=== PATIENT | female | born 1990 | race Caucasian/White ===

== ENCOUNTER 2017-02-02 22:13 | Inpatient (IN) | payer OTHER ==
[~2017-02-02] VITALS: Ht 160 cm; Wt 87.9 kg
[2017-02-02 22:23] VITALS: Ht 160 cm; Wt 87.9 kg
[2017-02-02 22:24] VITALS: BP 120/65; PULSE 121; RESP 18
[2017-02-02] MEDS ORDERED: [UNRECOGNIZED DRUG - CODE] VG (22:29)
[2017-02-02] MEDS ORDERED: CEPH500C PO (22:29)
[2017-02-02] MEDS ORDERED: FERR325C PO (22:29)
[2017-02-02] MEDS ORDERED: PRENAT PO (22:29)
[2017-02-02] MEDS ORDERED: OXYTOCIN 30 UNITS/LR 500 ML IV PRN (23:30)
[2017-02-02] MEDS ORDERED: OXYTOCIN 30 UNITS/LR 500 ML IV SCH ×2 (23:30)
[2017-02-02] MEDS ORDERED: BUTORPHANOL 2 MG INJ IV PRN (23:30)
[2017-02-02] MEDS ORDERED: MISOPROSTOL 200 MCG TAB PR PRN (23:30)
[2017-02-02] MEDS ORDERED: CARBOPROST 250 MCG INJ IM PRN (23:30)
[2017-02-02] MEDS ORDERED: LIDOCAINE 1% (MPF) 30 ML INJ INJ PRN (23:30)
[2017-02-02] MEDS ORDERED: AMPICILLIN 2 GM/NS (PMX) 100 ML IV ONE (23:30)
[2017-02-02] MEDS ORDERED: METHYLERGONOVINE 0.2 MG INJ IM PRN (23:30)
[2017-02-02] MEDS: LACTATED RINGER'S 1,000 ML IV SCH (23:35)
[2017-02-02 23:49] LABS: ADD SCAN DIFF NO
[2017-02-02 23:52] LABS: BASOPHIL # 0.1 10^3/ul (0.0-0.1); BASOPHILS % 0.5 % (0.0-2.0); EOSINOPHILS # 0.1 10^3/ul (0.0-0.5); EOSINOPHILS % 1.1 % (0.0-7.0); HEMATOCRIT 35.4 % (37.0-47.0); LYMPHOCYTES # 2.2 10^3/ul (0.8-2.9); LYMPHOCYTES % 20.7 % (15.0-51.0); MEAN CORPUSCULAR HEMOGLOBIN 31.4 pg (29.0-33.0); MEAN CORPUSCULAR HGB CONC 33.9 g/dl (32.0-37.0); MEAN CORPUSCULAR VOLUME 92.7 fl (82.0-101.0); MEAN PLATELET VOLUME 10.7 fl (7.4-10.4); MONOCYTE # 0.9 10^3/ul (0.3-0.9); MONOCYTES % 8.8 % (0.0-11.0); NEUTROPHIL # 7.2 10^3/ul (1.6-7.5); NEUTROPHILS % 67.9 % (39.0-77.0); PLATELET COUNT 246 10^3/UL (140-415); RED BLOOD COUNT 3.82 10^6/ul (4.20-5.40); RED CELL DISTRIBUTION WIDTH 14.9 % (11.5-14.5); WHITE BLOOD COUNT 10.6 10^3/ul (4.8-10.8)
[2017-02-03 00:06] LABS: INR 0.9; PROTIME 12.1 Sec (12.2-14.2); PT RATIO 0.9
[2017-02-03 00:07] LABS: PARTIAL THROMBOPLASTIN TIME 28.1 Sec (25.0-35.0)
--- NOTE | 2017-02-03 01:11 | RADRPT ---
PROCEDURE: US OB. CLINICAL INDICATION: Estimated weight, labor, no records. Clinical estimate gesta tional age is 38 weeks 5 days with estimated date of delivery 02/11/2017 TECHNIQUE: Multiple sonographic images of the pelvis were obtained. The images were reviewed on a PACS workstation. COMPARISON: No prior studies are available for comparison. FINDINGS: There is a single live intrauterine gestation. Cardiac activity is present with 134 beats per minut e. There is a cephalic position. Measurements were made in order to determine age. The results are as follows: BPD =9.21 cm, 37 weeks 3 days HC =33 cm 37 weeks 4 days AC =35.34 cm, 39 weeks 2 days FL =7.51 cm, 38 weeks 3 days. Estimated gestational age of approximately 38 weeks 1 day. The estimated date of delivery is 02/15/2017. The EFW = 3549 g, 7 pounds 13 ounces, 65.4% . The placenta is fundal and grade I/II. There is no evidence for an abruption. IMPRESSION: Single live intrauterine gestation of approximately 38 weeks 1 day based on ultrasound measurements. The estimated date of delivery is 02/15/2017 . RPTAT: HJES .David Hair MD, Date Time Electronically viewed and signed by .David Hair MD, on 02/03/2017 01:10 .S/
[2017-02-03] MEDS ORDERED: LACTATED RINGER'S 1,000 ML IV PRN (03:00)
[2017-02-03] MEDS: AMPICILLIN 1 GM/NS (PMX) 50 ML IV SCH ×3 (03:29→11:48)
[2017-02-03] MEDS: LACTATED RINGER'S 1,000 ML IV SCH (07:51)
[2017-02-03] MEDS ORDERED: OXYTOCIN 30 UNITS/LR 500 ML IV SCH (10:00)
[2017-02-03] MEDS ORDERED: FENTAnyl 2MCG/ML-ROPIV 0.2% 100 ML ONE (10:57)
[2017-02-03] MEDS ORDERED: DIPHENHYDRAMINE 50 MG INJ IV PRN (11:00)
[2017-02-03] MEDS ORDERED: FENTAnyl 2MCG/ML-ROPIV 0.2% 100 ML BAG EPI SCH (11:00)
[2017-02-03] MEDS ORDERED: NALOXONE (0.4 MG/ML) INJ IV PRN (11:00)
[2017-02-03] MEDS ORDERED: ONDANSETRON 4 MG INJ IV PRN ×2 (11:00→14:30)
--- NOTE | 2017-02-03 12:19 | HP ---
Date/Time of Note Date/Time of Note DATE: 02/03/17 TIME: 12:03 OB - History Hx of Present Free Text/Dictation Patient came in labor admitted for delivery. Estimated Due Date: Feb 03, 2017 : 3 Para: 2 Care: Good Care Ultrasounds: Normal mid trimester US Obstetrical Complications: None Medical Complications: None Past Family/Social History * Past Medical, Surgical, Family and Obstetric Histories reviewed from chart. non contributory Blood Type: A+ Rubella: immune RPR/VDRL: Negative GBS Status: Negative HBsAG: Negative OB Admission Exam Vital Signs Vital Signs Vital Signs Date Time Temp Pulse Resp B/P Pulse Ox O2 Delivery O2 Flow Rate FiO2 02/02/17 22:24 98.5 121 18 120/65 Room Air Physical Exam HEENT: WNL Heart: Rhythm Normal Lungs: Clear, Equal Abdomen: WNL Extremities: Normal Reflexes: Normal Cervical Dilatation: 4cm Effacement: 75% Station: -2 Membranes: Intact Heart Rate: 130's Accelerations: Accelerations Present Decelerations: No Decelerations Varibility: Moderate Contractions on Admission: 6-10 Minutes Apart Intensity: Moderate Last 72 hours Lab Results CBC & BMP 02/02/17 23:15 OB Assessment/Plan Reason for admission: active labor, observation Plan: Induction Other plan: delivery VALDEZ CHANCE MD Feb 03, 2017 12:14
--- NOTE | 2017-02-03 14:25 | LDN ---
Date/Time of Note Date/Time of Note DATE: 02/03/17 TIME: 14:22 Delivery Summary VACUUM ASSISTED VAGINAL DELIVERY DUE TO POSTERIOR PRESENTATION AND HEART TONE DECELERATIONS Weeks of Gestation 38.6 WEEKS GESTATION IN LABOR AUGMENTATION GIVEN Assisted Vaginal Delivery: Vacuum Placenta Delivered: Spontaneously Meconium: none Episiotomy: No Anesthesia type: Epidural Estimated blood loss: 200 Sponge & Needle done & correct: Yes All needle counts correct: Yes Any foreign bodies felt in the: Yes Problems: Delivery Information Sex Sex: female Apgars 1 Minute: 9 5 Minute: 9 Suctioning Nose & mouth suctioned at eric: Yes Umbilical Cord Umbilical cord with: 3 Vessels Cord presentations: no nuchal cord Cord Blood was obtained: Yes Mother & Baby Disposition Disposition Mom & Baby to Maternity; Good: Yes VALDEZ CHANCE MD Feb 03, 2017 14:25
[2017-02-03] MEDS ORDERED: CARBOPROST 250 MCG INJ IM PRN (14:30)
[2017-02-03] MEDS ORDERED: ACETAMINOPHEN 325 MG TAB PO PRN ×2 (14:30)
[2017-02-03] MEDS ORDERED: METHYLERGONOVINE 0.2 MG INJ IM PRN (14:30)
[2017-02-03] MEDS ORDERED: MISOPROSTOL 200 MCG TAB PR PRN (14:30)
[2017-02-03] MEDS ORDERED: DIBUCAINE 1% 30 GM OINT PR PRN (14:30)
[2017-02-03] MEDS ORDERED: LANOLIN 7 GM TUBE TOP PRN (14:30)
[2017-02-03] MEDS ORDERED: BENZOCAINE 20% 56 ML SPRAY TOP PRN (14:30)
[2017-02-03] MEDS ORDERED: OXYTOCIN 30 UNITS/LR 500 ML IV PRN (14:30)
[2017-02-03] MEDS ORDERED: ACETAMINOPHEN/CODEINE #3 TAB PO PRN ×2 (14:30)
[2017-02-03] MEDS ORDERED: DIPHENHYDRAMINE 25 MG CAP PO PRN (14:30)
[2017-02-03] MEDS: OXYTOCIN 30 UNITS/LR 500 ML IV SCH ×2 (15:53→18:41)
[2017-02-03 16:57] VITALS: BP 101/52; PULSE 82; RESP 20
[2017-02-03] MEDS: IBUPROFEN 800 MG TAB PO SCH (17:44)
[2017-02-03 20:00] VITALS: BP 107/59; PULSE 68; RESP 20
[2017-02-03] MEDS: SENNA/DOCUSATE NA (8.6MG/50MG) TAB PO SCH (20:19)
[2017-02-04] VITALS: BP 107/59; PULSE 68; RESP 18
[2017-02-04] MEDS: IBUPROFEN 800 MG TAB PO SCH ×4 (01:48→17:54)
[2017-02-04 04:00] VITALS: BP 93/54; PULSE 67; RESP 18
[2017-02-04] MEDS: SENNA/DOCUSATE NA (8.6MG/50MG) TAB PO SCH ×2 (08:12→20:53)
[2017-02-04 08:30] VITALS: BP 98/56; PULSE 76; RESP 18
[2017-02-04 09:09] LABS: BASOPHILS % 0.3 % (0.0-2.0); EOSINOPHILS # 0.2 10^3/ul (0.0-0.5); HEMATOCRIT 34.7 % (37.0-47.0); HEMOGLOBIN 11.6 g/dl (12.0-16.0); LYMPHOCYTES # 2.1 10^3/ul (0.8-2.9); LYMPHOCYTES % 23.8 % (15.0-51.0); MEAN CORPUSCULAR HEMOGLOBIN 31.4 pg (29.0-33.0); MEAN CORPUSCULAR HGB CONC 33.4 g/dl (32.0-37.0); MEAN PLATELET VOLUME 10.8 fl (7.4-10.4); MONOCYTE # 0.5 10^3/ul (0.3-0.9); MONOCYTES % 5.5 % (0.0-11.0); NEUTROPHIL # 5.9 10^3/ul (1.6-7.5); NEUTROPHILS % 67.8 % (39.0-77.0); PLATELET COUNT 207 10^3/UL (140-415); RED BLOOD COUNT 3.69 10^6/ul (4.20-5.40); RED CELL DISTRIBUTION WIDTH 14.7 % (11.5-14.5); WHITE BLOOD COUNT 8.7 10^3/ul (4.8-10.8)
--- NOTE | 2017-02-04 11:47 | PN ---
Date/Time of Note Date/Time of Note DATE: 02/04/17 TIME: 11:45 OB Subjective Subjective Subjective doing well uterus contracted lochia normal not bleeding much breast feeding OB Objective HEENT: WNL Heart: Rhythm Normal Lungs: Clear, Equal Abdomen: WNL Extremities: Normal Reflexes: Normal OB Assessment/Plan Other Assessment: vaginal delivery day 1 VALDEZ CHANCE MD Feb 04, 2017 11:46
[2017-02-04 12:16] VITALS: BP 101/55; PULSE 77; RESP 18
[2017-02-04 16:00] VITALS: BP 99/55; PULSE 67; RESP 18
[2017-02-04 20:00] VITALS: BP 131/71; PULSE 85; RESP 18
[2017-02-05] MEDS: IBUPROFEN 800 MG TAB PO SCH ×2 (01:15→09:18)
[2017-02-05 04:00] VITALS: BP 100/58; PULSE 71; RESP 18
[2017-02-05 08:00] VITALS: BP 111/74; PULSE 70; RESP 16
[2017-02-05] MEDS ORDERED: VARICELLA VACCINE LIVE/PF 1,350 UNIT/0.5 ML ML SC* ONE (09:00)
[2017-02-05] MEDS ORDERED: DIPHTH/TET/ACEL PERTUSS (ADULT) 0.5 ML VIAL IM* ONE (09:00)
[2017-02-05] MEDS: SENNA/DOCUSATE NA (8.6MG/50MG) TAB PO SCH (09:18)
--- NOTE | 2017-02-05 13:59 | DS ---
Date/Time of Note Date/Time of Note DATE: 02/05/17 TIME: 13:59 Obstetrical Discharge Record Final Diagnosis Final Diagnosis: Term delivered Vaginal Delivery Obstetrical Delivery: Vacuum Extraction Complications Augmentation: Yes Condition on Discharge Physical Assessment Voiding: Yes Bowel Movement: Yes Breast: Soft, non-tender, Filling Fundus: Firm Calf Tenderness: No Patient Condition: Good VALDEZ CHANCE MD Feb 05, 2017 13:59
== END 2017-02-05 13:20 | disposition home or self-care (01) | DRG 775 ==
LOC: OBT 22:13 → L-D 22:16 → OBT 23:05 → L-D 23:05 → PP1 02-03 16:43
PROVIDERS: ADMIT Obstetrics & Gynecology; ATTEND Obstetrics & Gynecology
PROC: 10D07Z6 Extraction of Products of Conception, Vacuum, Via Natural or Artificial Opening (ICD-10-PCS; principal; 2017-02-03)
PROC: 3E033VJ Introduction of Other Hormone into Peripheral Vein, Percutaneous Approach (ICD-10-PCS; 2017-02-03)
PROC: 3E00X4Z Introduction of Serum, Toxoid and Vaccine into Skin and Mucous Membranes, External Approach (ICD-10-PCS; 2017-02-05)
DX: O76 Abnormality in fetal heart rate and rhythm complicating labor and delivery (principal); Z23 Encounter for immunization; Z3A.38 38 weeks gestation of pregnancy; Z37.0 Single live birth
CPT/HCPCS: 62319; 76815; 85025; 85610; 85730; 86592; 86900; 86901; 87340; 90715; 90716; 99464; G0463; J0290; J2590; J3010; J7120

== ENCOUNTER 2018-05-30 20:20 | Inpatient (IN) | END 2018-06-01 15:30 | disposition home or self-care (01) | DRG 832 ==

== ENCOUNTER 2018-07-12 23:30 | Outpatient (CLI) | END 2018-07-13 02:55 | disposition home or self-care (01) ==

== ENCOUNTER 2018-07-21 17:11 | Inpatient (IN) | payer MEDICAID, OTHER ==
[~2018-07-21] VITALS: Ht 160 cm; Wt 92.5 kg
[~2018-07-21 17:11] MED LIST: FERR325C PO; PRENAT PO
[2018-07-21] MEDS ORDERED: FERR134T PO (17:28)
[2018-07-21 17:29] VITALS: BP 112/58; PULSE 90; RESP 18; Ht 160 cm; Wt 92.5 kg
[2018-07-21] MEDS ORDERED: LACTATED RINGER'S 1,000 ML IV PRN (20:05)
[2018-07-21] MEDS ORDERED: BUTORPHANOL 2 MG INJ IV PRN (20:30)
[2018-07-21] MEDS ORDERED: IBUPROFEN 600 MG TAB PO PRN (20:30)
[2018-07-21] MEDS ORDERED: MISOPROSTOL 200 MCG TAB PR PRN (20:30)
[2018-07-21] MEDS ORDERED: LIDOCAINE 1% (MPF) 30 ML INJ INJ PRN (20:30)
[2018-07-21] MEDS ORDERED: OXYTOCIN 30 UNITS/LR 500 ML IV PRN (20:30)
[2018-07-21] MEDS ORDERED: OXYTOCIN 30 UNITS/LR 500 ML IV SCH ×2 (20:30)
[2018-07-21] MEDS ORDERED: METHYLERGONOVINE 0.2 MG INJ IM PRN (20:30)
[2018-07-21] MEDS ORDERED: CARBOPROST 250 MCG INJ IM PRN (20:30)
[2018-07-21 20:36] VITALS: BP 105/69; PULSE 107; RESP 18
[2018-07-21] MEDS ORDERED: AMPICILLIN 2 GM/NS (PMX) 100 ML IV ONE (21:30)
--- NOTE | 2018-07-21 21:55 | TRIAGE ---
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 Labor Evaluation Frequency: X5 IN ONE HOUR Monitor Mode: External Duration (sec)2399: 60-100 Quality: Mild Resting Tone [place]: Relaxed Contraction Comments: PT STATES SHE FEELS "MAYBE ONE UC" Heart Rate FHR Baseline Rate: 135 Monitor Mode: External US Variability: Moderate 6-25 bpm Accelerations: 15X15 Decelerations: None Datetime: 05/31/2018 00:00 Stage of : Antepartum Labor Evaluation Frequency: X3 IN ONE HOUR Monitor Mode: External Duration (sec)2399: 40-60 Quality: Mild Resting Tone [place]: Relaxed Heart Rate FHR Baseline Rate: 155 Monitor Mode: External US Variability: Moderate 6-25 bpm Accelerations: 15X15 Decelerations: None Datetime: 05/30/2018 23:00 Stage of : Antepartum Labor Evaluation Frequency: X3 IN ONE HOUR Monitor Mode: External Duration (sec)2399: 50-70 Quality: Mild Resting Tone [place]: Relaxed Contraction Comments: PT STATES SHE ONLY FELT ONE UC Heart Rate FHR Baseline Rate: 155 Monitor Mode: External US Variability: Moderate 6-25 bpm Accelerations: 15X15 Decelerations: None Datetime: 05/30/2018 22:00 Stage of : Antepartum Labor Evaluation Frequency: NONE Monitor Mode: External Resting Tone [place]: Relaxed Heart Rate FHR Baseline Rate: 155 Monitor Mode: External US Variability: Moderate 6-25 bpm Accelerations: 15X15 Decelerations: None Category: Category I Datetime: 05/30/2018 21:21 Stage of : Antepartum Assessment Type: Ongoing Assessment Vaginal Bleeding: None Maternal Assessment Level of Consciousness: Fully Conscious DTR's/Clonus: DTRs 2+; No Clonus Headache: Denies Blurred Vision: No Respiratory Effort: Unlabored; Regular Rhythm; Equal Expansion Breath Sounds, Left: Clear and Equal Breath Sounds, Right: Clear and Equal Nausea/Vomiting: Denies RUQ Epigastric Pain: Denies Lower Extremities Edema: None Degree: None Upper Extremities Edema: None Degree: None Facial Edema: None Fall Risk Assessment History of Falling: (0) No Secondary Diagnosis: (0) No Ambulatory Aid: (0) Bedrest/Nurse Assist IV Therapy: (20) Yes Gait: (0) Normal/Bedrest/Immobile Mental Status: (0) Oriented to Own Ability Fall Score: 20 Fall Risk Score Definition: No Risk: No action required Labor Evaluation Frequency: X4 IN ONE HOUR Duration (sec)2399: 50-70 Quality: Mild Resting Tone [place]: Relaxed Heart Rate FHR Baseline Rate: 155 Variability: Moderate 6-25 bpm Accelerations: 15X15 Decelerations: None Category: Category I Pain Assessment Pain Scale: 10 Pain Presence: Intermittent Pain Type: Contraction Pain Location: Abdomen Pain Goal: 3 Membrane Status: Intact Datetime: 05/30/2018 20:30 Stage of : Antepartum Datetime: 05/30/2018 20:18 Stage of : Antepartum Datetime: 05/30/2018 20:00 Stage of : OB Triage Labor Evaluation Frequency: X3 IN ONE HOUR Monitor Mode: External Duration (sec)2399: 60-90 Quality: Mild Resting Tone [place]: Relaxed Heart Rate FHR Baseline Rate: 155 Monitor Mode: External US Variability: Moderate 6-25 bpm Accelerations: 15X15 Decelerations: None Category: Category I Datetime: 05/30/2018 19:43 Stage of : OB Triage Assessment Type: Triage Maternal Assessment Level of Consciousness: Fully Conscious DTR's/Clonus: DTRs 2+; No Clonus Headache: Denies Blurred Vision: No Respiratory Effort: Unlabored; Regular Rhythm; Equal Expansion Breath Sounds, Left: Clear and Equal Breath Sounds, Right: Clear and Equal Nausea/Vomiting: Denies RUQ Epigastric Pain: Denies Lower Extremities Edema: None Degree: None Upper Extremities Edema: None Degree: None Facial Edema: None Temperature Route: Oral Fall Risk Assessment History of Falling: (0) No Secondary Diagnosis: (0) No Ambulatory Aid: (0) Bedrest/Nurse Assist IV Therapy: (20) Yes Gait: (0) Normal/Bedrest/Immobile Mental Status: (0) Oriented to Own Ability Fall Score: 20 Fall Risk Score Definition: No Risk: No action required Datetime: 05/30/2018 18:36 Monitor Mode: External US Datetime: 05/30/2018 18:00 Stage of : OB Triage Maternal Assessment Level of Consciousness: Fully Conscious Labor Evaluation Frequency: 5UC/HR Monitor Mode: External Duration (sec)2399: 50-90 Quality: Mild Resting Tone [place]: Relaxed Heart Rate FHR Baseline Rate: 150 Monitor Mode: External US Variability: Moderate 6-25 bpm Accelerations: 15X15 Decelerations: None Category: Category I Pain Assessment Pain Scale: 0 Pain Goal: 3 Membrane Status: Intact Vaginal Bleeding: None Datetime: 05/30/2018 17:00 Stage of : OB Triage Maternal Assessment Level of Consciousness: Fully Conscious Labor Evaluation Frequency: 5UC/HR Monitor Mode: External Duration (sec)2399: 50-120 Quality: Mild Resting Tone [place]: Relaxed Heart Rate FHR Baseline Rate: 150 Monitor Mode: External US Variability: Moderate 6-25 bpm Accelerations: 15X15 Decelerations: None Category: Category I Pain Assessment Pain Scale: 0 Pain Goal: 3 Membrane Status: Intact Vaginal Bleeding: None Datetime: 05/30/2018 16:04 Assessment Type: Triage Maternal Assessment Level of Consciousness: Fully Conscious DTR's/Clonus: DTRs 2+; No Clonus Headache: Denies Blurred Vision: No Respiratory Effort: Unlabored; Regular Rhythm; Equal Expansion Breath Sounds, Left: Clear and Equal Breath Sounds, Right: Clear and Equal Nausea/Vomiting: Denies RUQ Epigastric Pain: Denies Lower Extremities Edema: None Degree: None Upper Extremities Edema: None Degree: None Facial Edema: None Fall Risk Assessment History of Falling: (0) No Secondary Diagnosis: (0) No Ambulatory Aid: (0) Bedrest/Nurse Assist IV Therapy: (0) No Gait: (0) Normal/Bedrest/Immobile Mental Status: (0) Oriented to Own Ability Fall Score: 0 Fall Risk Score Definition: No Risk: No action required Datetime: 05/30/2018 16:03 Time of Arrival: 05/30/2018 15:41 EGA: 31.3 Arrived By: Ambulatory Arrived From: Home Chief Complaint: PT HERE C/O UC'S SINCE YESTERDAY Movement: Present Contractions: Irregular Rupture of Membranes: Denies Vaginal Bleeding: None Vaginal Discharge: Denies Recent Sexual Intercouse: Denies Abdominal Trauma: Not Applicable Patient Complaints: Contractions; Cramping; Back Pain Time Provider Notified: 05/30/2018 16:28 Provider Notified: JUAN Initial Plan: EFM/EFW/UA/CBC/IV HYDRATION/ Datetime: 05/30/2018 16:01 Monitor Mode: External Monitor Mode: External US
[2018-07-21] MEDS: LACTATED RINGER'S 1,000 ML IV SCH (22:08)
[2018-07-21] MEDS ORDERED: FENTAnyl 2MCG/ML-ROPIV 0.2% 100 ML ONE (22:40)
--- NOTE | 2018-07-21 22:52 | PREAC ---
Date/Time of Note Date/Time of Note DATE: 07/21/18 TIME: 22:50 Anesthesia Eval and Record Evaluation Time Pre-Procedure Interview DATE: 07/21/18 TIME: 22:20 Age 28 Sex female NPO: 8 hrs Preoperative diagnosis iup # 39 wks., , labor Planned procedure kamari Past Medical History Past Medical History: Includes GI: Other (s/p candelario.) : : (5), Para: (3), Gestational age: (39 wks.) Surgery & Anesthesia Issues No known issue Meds Anticoagulation: No Beta Yelena within 24 hr: No Reason Beta Yelena not given: Pt. not on B-Yelena Reported Medications Ferrous Sulfate (Iron) 134 Mg Tablet, 134 MG PO DAILY, TAB 07/21/18 Ferrous Sulfate (Iron) 325 Mg Capsule.er, 325 MG PO DAILY, CAP 02/02/17 Multivit/Min/Fol Ac/Iron/Pren* ( S*) 1 Tab Tab, 1 TAB PO DAILY, TAB 02/02/17 Current Medications Lactated Ringer's 1,000 ml @ 125 mls/hr Q8H IV Last administered on 07/21/18at 22:08; Admin Dose 125 MLS/HR; Start 07/21/18 at 20:05 Butorphanol Tartrate (Stadol) 2 mg Q2H PRN IV PAIN; Start 07/21/18 at 20:30 Lidocaine (Xylocaine 1% (Mpf)) 30 ml ONCE PRN INJ EPISIOTOMY; Start 07/21/18 at 20:30 Oxytocin/Lactated Ringer's 500 ml @ 500 mls/hr ONCE POST IV ; Start 07/21/18 at 20:30 Oxytocin/Lactated Ringer's 500 ml @ 125 mls/hr POST IV ; Start 07/21/18 at 20:30 Ibuprofen (Motrin) 600 mg ONCE PRN PO PAIN LEVEL 1-5; Start 07/21/18 at 20:30 Lactated Ringer's 1,000 ml @ 2,000 mls/hr Q30M PRN IV ANESTHESIA Last administered on 07/21/18at 21:07; Admin Dose 2,000 MLS/HR; Start 07/21/18 at 20:05 Oxytocin/Lactated Ringer's 500 ml @ 0 mls/hr ONCE PRN IV VAGINAL BLEEDING; Start 07/21/18 at 20:30 Methylergonovine Maleate (Methergine) 0.2 mg ONCE PRN IM VAGINAL BLEEDING; Start 07/21/18 at 20:30 Carboprost Tromethamine (Hemabate) 250 mcg ONCE PRN IM VAGINAL BLEEDING; Start 07/21/18 at 20:30 Misoprostol (Cytotec) 1,000 mcg ONCE PRN NM VAGINAL BLEEDING; Start 07/21/18 at 20:30 Ampicillin 50 ml @ 100 mls/hr Q4H IV ; Start 07/22/18 at 01:30 Meds reviewed: Yes Allergies Coded Allergies: No Known Drug Allergy (Verified Allergy, Mild, 07/21/18) Allergies Reviewed: Yes Labs/Studies Labs Reviewed: Reviewed by anesthesiologist Result Diagram: 07/21/18 192 Laboratory Tests 07/21/18 19:22 Blood Bank Test 07/21/18 19:22 Antibody Screen NEGATIVE Blood Type A POSITIVE Rh Immune Globulin Candidate NO test: Positive Studies: ECG (n/a), CXR (n/a) Pre-procedure Exam Last vitals Vital Signs Date Temp Pulse Resp B/P (MAP) Pulse Ox O2 O2 Flow FiO2 Time Delivery Rate 07/21/18 98.2 107 18 105/69 Room Air 20:36 (81) Airway: Adequate mouth opening, Adequate thyromental dist Mallampati: Mallampati II Teeth: Normal Lung: Normal Heart: Normal ASA Physical Status ASA physical status: 2 Emergency: E Planned Anesthetic Neuraxial: Epidural Planned Pain Management Local by surgeon Pre-operative Attestations Prior to commencing anesthesia and surgery, the patient was re-evaluated, there was verification of: *The patient's identity *The results of appropriate recent lab work and preoperative vital signs *The above evaluation not changing prior to induction *Anesthetic plan, risk benefits, alternative and complications discussed with patient/family; questions answered; patient/family understands, accepts and wishes to proceed. Flaker Tender used KATHE MUÑOZ MD Jul 21, 2018 22:52
--- NOTE | 2018-07-21 22:52 | PAC ---
Date/Time of Note Date/Time of Note DATE: 07/22/18 TIME: 14:00 Post-Anesthesia Notes Post-Anesthesia Note Last documented vital signs Vital Signs Date Temp Pulse Resp B/P (MAP) Pulse Ox O2 O2 Flow FiO2 Time Delivery Rate 07/21/18 98.2 107 18 105/69 Room Air 20:36 (81) Activity: WNL Respiratory function: WNL Cardiovascular function: WNL Mental status: Baseline Pain reasonably controlled: Yes Hydration appropriate: Yes Nausea/Vomiting absent: Yes KATEH MUÑOZ MD Jul 21, 2018 22:52
[2018-07-21] MEDS ORDERED: NALOXONE (0.4 MG/ML) INJ IV PRN (23:00)
[2018-07-21] MEDS ORDERED: FENTAnyl 2MCG/ML-ROPIV 0.2% 100 ML BAG EPI SCH (23:00)
[2018-07-21] MEDS ORDERED: EPHEDrine SULFATE 50 MG/5 ML SYG IV PRN (23:00)
[2018-07-21] MEDS ORDERED: ONDANSETRON 4 MG INJ IV PRN (23:00)
[2018-07-22] MEDS: AMPICILLIN 1 GM/NS (PMX) 50 ML IV SCH ×3 (01:19→09:30)
[2018-07-22] MEDS: LACTATED RINGER'S 1,000 ML IV SCH ×2 (01:23→09:12)
[2018-07-22] MEDS ORDERED: NALBUPHINE HCL (10 MG/1 ML) INJ IV PRN (05:00)
[2018-07-22] MEDS ORDERED: NALOXONE (0.4 MG/ML) INJ IV PRN (05:00)
[2018-07-22] MEDS ORDERED: DIPHENHYDRAMINE 50 MG INJ IV PRN (05:00)
[2018-07-22] MEDS ORDERED: OXYTOCIN 30 UNITS/LR 500 ML IV SCH ×2 (08:00→11:17)
[2018-07-22] MEDS ORDERED: LACTATED RINGER'S 1,000 ML IV* SCH (11:11)
--- NOTE | 2018-07-22 11:11 | OPPN ---
Date/Time of Note Date/Time of Note DATE: 07/22/18 TIME: 11:09 Operative Report Planned Procedure Procedure date Jul 22, 2018 Procedure(s) Performed by see signature line Tearoom Host/Hostess: A 2nd Tearoom Host/Hostess none Pre-procedure diagnosis 39 WEEK IUP IN LABOR [id number] Anesthesia Type: [id number] epidural Post-Procedure Post-procedure diagnosis 39 WEEKS IUP IN LABOR Findings Live Baby BOY, Apgars 8and 9, [id number] 12 OZ 4105 GRAMS Estimated Blood Loss: 200 - 300 mls Specimen(s) none Grafts/Implant(s) none Complication(s) none BEATA MARTINEZ MD Jul 22, 2018 11:11
[2018-07-22] MEDS ORDERED: ZOLPIDEM 5 MG TAB PO PRN (11:30)
[2018-07-22] MEDS ORDERED: DIPHENHYDRAMINE 25 MG CAP PO PRN (11:30)
[2018-07-22] MEDS ORDERED: BENZOCAINE 20% 56 ML SPRAY TOP PRN (11:30)
[2018-07-22] MEDS ORDERED: CARBOPROST 250 MCG INJ IM PRN (11:30)
[2018-07-22] MEDS ORDERED: LANOLIN HPA 1 PKT TOP PRN (11:30)
[2018-07-22] MEDS ORDERED: ONDANSETRON 4 MG INJ IV PRN (11:30)
[2018-07-22] MEDS ORDERED: WITCH HAZEL/GLYCERIN PAD PR PRN (11:30)
[2018-07-22] MEDS ORDERED: NA PHOSPHATE/BIPHOS 133 ML ENEMA PR PRN (11:30)
[2018-07-22] MEDS ORDERED: MAGNESIUM HYDROXIDE 30ML CUP PO PRN (11:30)
[2018-07-22] MEDS ORDERED: METHYLERGONOVINE 0.2 MG TAB PO PRN (11:30)
[2018-07-22] MEDS ORDERED: MISOPROSTOL 200 MCG TAB PR PRN (11:30)
[2018-07-22] MEDS ORDERED: METHYLERGONOVINE 0.2 MG INJ IM PRN (11:30)
[2018-07-22] MEDS ORDERED: OXYTOCIN 30 UNITS/LR 500 ML IV PRN (11:30)
[2018-07-22] MEDS ORDERED: HYDROCODONE/APAP (5/325) TAB PO PRN ×2 (11:30)
[2018-07-22 12:15] VITALS: BP 91/53; PULSE 77; RESP 18
[2018-07-22] MEDS: IBUPROFEN 600 MG TAB PO SCH ×3 (12:49→23:59)
[2018-07-22 16:03] VITALS: BP 98/57; PULSE 87; RESP 18
[2018-07-22 20:30] VITALS: BP 108/70; PULSE 79; RESP 16
[2018-07-22] MEDS: SENNA/DOCUSATE NA (8.6MG/50MG) TAB PO SCH (21:00)
[2018-07-22 23:30] VITALS: BP 101/83; PULSE 78; RESP 18
[2018-07-23 04:10] VITALS: BP 103/61; PULSE 78; RESP 18
[2018-07-23] MEDS: IBUPROFEN 600 MG TAB PO SCH ×3 (06:13→18:04)
[2018-07-23 07:30] VITALS: BP 104/52; PULSE 78; RESP 18
[2018-07-23 08:30] VITALS: BP 114/71; PULSE 71; RESP 16
[2018-07-23] MEDS: SENNA/DOCUSATE NA (8.6MG/50MG) TAB PO SCH ×2 (10:35→21:00)
[2018-07-23 16:00] VITALS: BP 105/60; PULSE 70; RESP 18
--- NOTE | 2018-07-23 16:21 | PN ---
Date/Time of Note Date/Time of Note DATE: 07/23/18 TIME: 16:19 Assessment/Plan VTE Prophylaxis Risk score (from Ns)>0 risk: 1 SCD applied (from [facility]): No SCD contraindicated: low risk/ambulating Pharmacological prophylaxis: NA/contraindicated Pharm contraindication: low risk/ambulating Lines/Catheters IV Catheter Type (from [facility] Peripheral IV Assessment/Plan Assessment/Plan HOME TOMORROW RETURN TO CLINIC IN 2 WEEKS CONTINUE WITH VITAMINS OD AND FERROUS SULFATE PO TID DIET ADVISED COUNSELED INSTRUCTED CALL OFFICE IF THERE IS ANY PROBLEMS OR CONCERN Result Diagram: 07/23/18 0626 Results 24hrs Laboratory Tests Test 07/23/18 06:26 White Blood Count 10.4 # Red Blood Count 3.38 L Hemoglobin 10.1 L Hematocrit 30.6 L Mean Corpuscular Volume 90.5 Mean Corpuscular Hemoglobin 29.9 Mean Corpuscular Hemoglobin Concent 33.0 Red Cell Distribution Width 13.9 Platelet Count 195 Mean Platelet Volume 11.3 H Immature Granulocytes % 0.600 H Neutrophils % 67.6 Lymphocytes % 23.1 Monocytes % 6.7 Eosinophils % 1.5 Basophils % 0.5 Nucleated Red Blood Cells % 0.0 Immature Granulocytes # 0.060 H Neutrophils # 7.1 Lymphocytes # 2.4 Monocytes # 0.7 Eosinophils # 0.2 Basophils # 0.1 Nucleated Red Blood Cells # 0.0 Subjective 24 Hr Interval Summary Free Text/Dictation FEELS GOOD, GOOD URINE OUTPUT, GOOD BOWEL MOVEMENT Exam/Review of Systems Vital Signs Vitals Vital Signs Date Temp Pulse Resp B/P (MAP) Pulse Ox O2 O2 Flow FiO2 Time Delivery Rate 07/23/18 98.1 70 18 105/60 Room Air 16:00 (75) Intake and Output 07/22/18 07/22/18 07/23/18 1515:00 23:00 07:00 IntakeIntake Total 1500 ml OutputOutput Total 1547 ml BalanceBalance -47 ml Exam VITAL SIGNS STABLE: YES AFEBRILE: YES BREAST NOT ENGORGED, NON-TENDER, NO APPRECIABLE MASS: YES LUNGS CLEAR, NO RALES, WHEEZES, RHONCHI: YES SINUS RHYTHM WITHOUT MURMUR: YES ABDOMEN: NON-TENDER FUNDUS: BELOW UMBILICUS BOWEL SOUNDS: PRESENT UTERUS: FIRM INTACT PERINEUM: YES LOCHIA: LIGHT DEEP TENDON REFLEXES: 0 EXTREMITIES: NO CALF TENDERNESS EDEMA SCALE: NONE Medications Medications Current Medications Methylergonovine Maleate (Methergine) 0.2 mg Q6H PRN PO VAGINAL BLEEDING; Start 07/22/18 at 11:30 Ibuprofen (Motrin) 600 mg Q6 PO Last administered on 07/23/18at 11:55; Admin Dose 600 MG; Start 07/22/18 at 12:00 Acetaminophen/ Hydrocodone Bitart ([place] (5/325)) 1 tab Q4H PRN PO PAIN LEVEL 1-5; Start 07/22/18 at 11:30 Acetaminophen/ Hydrocodone Bitart ([place] (5/325)) 2 tab Q4H PRN PO PAIN LEVEL 6-10; Start 07/22/18 at 11:30 Ondansetron HCl (Zofran Inj) 4 mg Q6H PRN IV NAUSEA AND/OR VOMITING; Start 07/22/18 at 11:30 Diphenhydramine HCl (Benadryl) 25 mg Q6H PRN PO PRURITUS; Start 07/22/18 at 11:30 Zolpidem Tartrate (Ambien) 5 mg QHS PRN PO INSOMNIA; Start 07/22/18 at 11:30 Senna/Docusate Sodium (Senokot-S) 1 tab BID PO Last administered on 07/23/18at 10:35; Admin Dose 1 TAB; Start 07/22/18 at 21:00 Magnesium Hydroxide (Milk Of Mag) 30 ml Q12H PRN PO CONSTIPATION; Start 07/22/18 at 11:30 Sodium Biphosphate/ Sodium Phosphate (Fleet Enema) 133 ml DAILY PRN MD CONSTIPATION; Start 07/22/18 at 11:30 Witch Jennifer/ Glycerin (Tucks Pads) 1 pad BEDSIDE MEDICATION PRN MD HEMORRHOID/EPISIOTMY PAIN Last administered on 07/22/18 12:49; Admin Dose 40 PAD; Start 07/22/18 at 11:30 Benzocaine (Dermoplast [place]) 1 spray BEDSIDE MEDICATION PRN TOP HEMORRHOID/EPISIOTMY PAIN Last administered on 07/22/18 12:49; Admin Dose 56 SPRAY; Start 07/22/18 at 11:30 Lanolin (Lanolin Hpa) 1 applic BEDSIDE MEDICATION PRN TOP BEDSIDE FOR GRACE TO NIPPLES Last administered on 1/6/19at 12:49; Admin Dose 1 APPLIC; Start 07/22/18 at 11:30 Diphtheria/ Tetanus/Acell Pertussis (Adacel) 0.5 ml ONCE ONCE IM* ; Start 07/24/18 at 09:00; Stop 07/24/18 at 09:01 Oxytocin/Lactated Ringer's 500 ml @ 0 mls/hr ONCE PRN IV VAGINAL BLEEDING; Start 07/22/18 at 11:30 Methylergonovine Maleate (Methergine) 0.2 mg ONCE PRN IM VAGINAL BLEEDING; Start 07/22/18 at 11:30 Carboprost Tromethamine (Hemabate) 250 mcg ONCE PRN IM VAGINAL BLEEDING; Start 07/22/18 at 11:30 Misoprostol (Cytotec) 1,000 mcg ONCE PRN MD VAGINAL BLEEDING; Start 07/22/18 at 11:30 BEATA MARTINEZ MD Jul 23, 2018 16:20
[2018-07-23 20:30] VITALS: BP 114/71; PULSE 71; RESP 16
[2018-07-24 00:08] VITALS: BP 114/71; PULSE 71; RESP 16
[2018-07-24] MEDS: IBUPROFEN 600 MG TAB PO SCH ×3 (00:45→12:05)
[2018-07-24 07:40] VITALS: BP 115/70; PULSE 74; RESP 17
[2018-07-24] MEDS ORDERED: VARICELLA VACCINE LIVE/PF 1,350 UNIT/0.5 ML ML SC* ONE (09:00)
[2018-07-24] MEDS ORDERED: DIPHTH/TET/ACEL PERTUSS (ADULT) 0.5 ML VIAL IM* ONE (09:00)
[2018-07-24] MEDS ORDERED: MEASLES,MUMPS,RUBELLA VACCINE INJ SC* ONE (09:00)
[2018-07-24] MEDS: SENNA/DOCUSATE NA (8.6MG/50MG) TAB PO SCH (09:03)
--- NOTE | 2018-07-24 12:55 | PREOPHP ---
DATE OF ADMISSION: 07/21/2018 HISTORY OF PRESENT ILLNESS: This is a 28-year-old lady, 5, para 3, EDC 07/29/2018 at 38 and 6/7 weeks, admitted in early labor. She had care at my [place] office and the care was uneventful. She started to have contractions about a few hours prior to admission. PAST PERSONAL HISTORY: No history of diabetes, TB, asthma. ALLERGIES: NO ALLERGIES. SOCIAL HISTORY: The patient does not smoke. She does not drink. MEDICATIONS: She does not take any drugs except her: 1. Iron. 2. Vitamins. GYNECOLOGICAL HISTORY: She had menarche at the age of 13, every 28 days interval, 3 to 4 days durati on and moderate in amount. FAMILY HISTORY: Grandmother on father's side had diabetes. OBSTETRICAL HISTORY: She is 5, para 3. Her first delivery was 1999, second 2010, third 2016 . The largest baby weighed about 8 pounds. She had 1 spontaneous in 2018. REVIEW OF SYSTEMS: CARDIOVASCULAR: No chest pain. RESPIRATORY: No cough. GASTROINTESTINAL: No diarrhea, no vomiting. GENITOURINARY: No dysuria. PHYSICAL EXAMINATION: GENERAL: Reveals a conscious, coherent lady and in no acute distress. VITAL SIGNS: Her blood pressure 130/80, pulse rate 80 per minute, respirations 16 per minute. BREASTS, HEART AND LUNGS: Within normal limits. ABDOMEN: Soft. Fundic height 37 cm. heart tones 140 per minute. PELVIC: On admission revealed the cervix to be 1 to 2 cm dilatation, station -3, 30% effaced with th e bag of water intact. EXTREMITIES: No pedal edema. ADMITTING DIAGNOSIS: 38 and 6/7 weeks' intrauterine in labor. The patient had an OB ultra sound. Estimated weight is 8 pounds 3 ounces. PLAN: The plans of delivery were explained to the patient and she understood everything totally. Th e risks, benefits and alternatives like was discussed with her. She understands the risks of shoulder dystocia as well. She wanted to go for vaginal delivery. She was given Pitocin augmenta tion. She received labor epidural at 22:30 on 07/21/2018 and she was observed for progress of labor. Also in 8:53 a.m., I reevaluated the patient. She was 7 cm dilated, 100% effaced, station 0 with t he bag of water intact and bulging. She had artificial rupture of membranes. scalp electrode and IUPC was inserted. She was as mentioned continued with Pitocin augmentation and she progressed w ell. She had received as mentioned labor epidural. Dictated By: BEATA SILVEIRA/LENCHO Conf#: [id number] DID#: [id number]
--- NOTE | 2018-07-24 14:32 | PN ---
DATE: 07/22/2018 HISTORY OF PRESENT ILLNESS: See dictated history and physical. PHYSICAL EXAMINATION: See dictated history and physical. ADMITTING DIAGNOSIS: A 38 and 6/7 weeks intrauterine in labor. HOSPITAL COURSE: The patient received labor epidural. She was given Pitocin augmentation and she pr ogressed well. She had a normal spontaneous vaginal delivery on 07/22/2018 at 10:02 a.m. delivering a healthy baby boy, Apgars 8 and 9, over intact perineum. The baby's weight was 9 pounds and 1 ounce , 4105 grams. The placenta was delivered spontaneously and complete. Manual exploration of the uter us revealed no membranes left behind. Cervix, vagina and vulva were free of hematoma. The pos ition was direct occiput anterior. The placenta was normal. There were 3 vessels in the cord. Plac enta was normal with a smooth shiny side and a pinkish maternal side. The peritoneum was intac t. The patient tolerated the delivery well. Estimated blood loss was about 300 mL. Baby weighed 9 pounds and 1 ounce, 4105 grams, Apgars 8 and 9, delivering a baby boy at 10:02 a.m. on 07/22/2018. Dictated By: BEATA SILVEIRA/LENCHO Conf#: [id number] DID#: [id number]
--- NOTE | 2018-07-29 13:47 | DS ---
DATE OF ADMISSION: 07/21/2018 DATE OF DISCHARGE: 07/24/2018 This is a 28-year-old lady, 5, para 3 at 38-6/7 weeks, admitted in labor. HISTORY OF PRESENT ILLNESS: See dictated history and physical. PHYSICAL EXAMINATION: See dictated history and physical. ADMITTING DIAGNOSIS: A 38-6/7 weeks intrauterine in labor. Patient underwent an ultrasoun d and the estimated weight by ultrasound was 8 pounds 3 ounces. She progressed well with Pitoc in augmentation. She had normal spontaneous vaginal delivery on 07/22/2018 at 10:02 a.m., delivering a healthy baby boy, 's 8 and 9 over intact perineum. She tolerated the delivery well. She did have good course. She was on general diet. She had good bowel movement postoperatively. She was counseled. She was instructed. She was told to come back to the clinic in 2 weeks. FINAL DIAGNOSIS: A 39-1/7 the line diagnoses. There is 36 with a good postoperative course. Her EF the yes on hospital day. I will call the right for what time is still living none. I called the s upervised told to try to for her aortic loop and give her food JOSEE. Thank you again to take her back in the ED delivered a healthy baby boy, 's 8 and 9 over intact perineum on 07/22/2018. She did have good course. She was on general diet. She had good bowel movement . She was discharged home on the second day on general diet and activity was restricted. She was counseled. She was instructed. She was told to continue to take her iron and vitamins at home. She was discharged home in good and stable condition. Hematocrit on discharge 30.6, hemoglobin 10.1. FINAL DIAGNOSES: Chronic iron deficiency anemia and 39 weeks uterine in labor and delivere d. Dictated By: BEATA MARTINEZ MD NS/NTS Conf#: [id number] DID#: [id number] CC: BEATA MARTINEZ MD;*EndCC*
== END 2018-07-24 15:49 | disposition home or self-care (01) | DRG 807 ==
LOC: OBT 17:11 → L-D 17:11 → OBT 19:58 → L-D 19:58 → PP1 07-22 12:01
PROVIDERS: ADMIT Obstetrics & Gynecology; ATTEND Obstetrics & Gynecology
PROC: 10E0XZZ Delivery of Products of Conception, External Approach (ICD-10-PCS; principal; 2018-07-21)
DX: O80 Encounter for full-term uncomplicated delivery (principal); Z37.0 Single live birth; Z3A.39 39 weeks gestation of pregnancy
CPT/HCPCS: 36415; 62319; 76815; 76818; 82803; 85025; 85460; 85610; 85730; 86592; 86850; 86900; 86901; 87340; 99464; G0463; J0290; J1200; J2590; J3010; J7120